=== PATIENT | male | born 1990 | race African-American/Black ===

== ENCOUNTER 2020-03-26 09:54 | Emergency (ER) | payer OTHER ==
[2020-03-26 10:19] VITALS: BP 147/91; PULSE 107; TEMP 99.3; BMI 29.0
[2020-03-26] MEDS ORDERED: ACETAMINOPHEN 500 MG TABLET (FP) PO ONE (10:42)
[2020-03-26] MEDS ORDERED: ACETAMINOPHEN 325 MG TABLET (FP) ONE (10:47)
--- NOTE | 2020-03-26 10:59 | PDOC ---
History of Present Illness - General Chief Complaint: Pain, Acute Stated Complaint: ABD PAIN/WEAKNESS Time Seen by Provider: 03/26/20 10:30 History Source: Patient Exam Limitations: No Limitations - History of Present Illness Initial Comments: 03/26/20 10:54 30-year-old male presents to the ED with myalgia, chills, intermittent shortness of breath, abdominal pain and intermittent diarrhea for the past 3 days. 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 Patient states history of asthma and has been using his inhaler as needed which has improved his shortness of breath. Patient states also is taking baby aspirin for discomfort with no improvement. Patient has no other complaints at this time. Is this a multiple visit Asthma Patient?: No Timing/Duration: other Severity: moderate Associated Symptoms: reports: fever/chills, shortness of breath, weakness (Shortness of breath weakness) Past History - Travel History Traveled outside of the country in the last 30 days: No Close contact w/someone who was outside of country & ill: No - Medical History Allergies/Adverse Reactions: Allergies Allergy/AdvReac Type Severity Reaction Status Date / Time No Known Allergies Allergy Verified 03/26/20 10:17 Home Medications: Ambulatory Orders Albuterol Sulfate Inhaler - [Ventolin HFA Inhaler -] 1 - 2 inh PO QID #1 inhaler 01/02/20 Acetaminophen [Tylenol] 650 mg PO QID PRN 03/26/20 Aspirin [ASA -] 325 mg PO DAILY 03/26/20 Loperamide HCl [Imodium -] 2 mg PO BID #14 capsule 03/26/20 Magnesium 250 mg PO DAILY 03/26/20 Methylprednisolone [Medrol Dose Harish] 4 mg PO ASDIR #21 tablet 03/26/20 Multivitamin [Multiple Vitamins] 1 each PO DAILY 03/26/20 Potassium Gluconate [Potassium] 1 tab PO DAILY 03/26/20 Asthma: Yes COPD: No GI Disorders: No Kidney Stones: No - Surgical History Cholecystectomy: No - Immunization History Immunization Up to Date: No - Psycho-Social/Smoking History Patient Lives Alone: No Lives with/in: spouse/SO Smoking History: Never smoked Have you smoked in the past 12 months: No - Substance Abuse Hx (Audit-C & DAST Scrn) How often the patient has a drink containing alcohol: Never Score: In Men: 4 or > Positive; In Women: 3 or > Positive: 0 Screen Result (Pos requires Nsg. Audit-10AR): Negative In the last yr the pt used illegal drug/Rx for NonMed reason: No Score: Yes response is considered Positive: 0 Screen Result (Positive result requires Nsg. DAST-10): Negative Review of Systems - Review of Systems Able to Perform ROS?: Yes Is the patient limited [place] proficient: Yes Constitutional: Yes: Chills, Weakness HEENTM: No: Symptoms Reported Respiratory: Yes: SOB with Exertion Cardiac (ROS): No: Symptoms Reported ABD/GI: Yes: Diarrhea, Abdominal cramping : No: Symptoms Reported Musculoskeletal: Yes: Joint Pain, Muscle Pain Integumentary: No: Symptoms Reported Neurological: No: Headache, Dizziness Hematologic/Lymphatic: No: Symptoms Reported *Physical Exam - Vital Signs Last Vital Signs Temp Pulse Resp BP Pulse Ox 99.3 F 107 H 18 147/91 100 03/26/20 10:16 03/26/20 10:16 03/26/20 10:16 03/26/20 10:16 03/26/20 10:16 - Physical Exam General Appearance: Yes: Nourished, Appropriately Dressed. No: Apparent Distress HEENT: negative: Pale Conjunctivae Neck: positive: Supple Respiratory/Chest: positive: Lungs Clear, Normal Breath Sounds. negative: Respiratory Distress, Accessory Muscle Use Cardiovascular: positive: Regular Rhythm, Tachycardia. negative: Murmur Gastrointestinal/Abdominal: positive: Soft. negative: Tenderness Integumentary: positive: Normal Color, Warm, Moist Neurologic: positive: Motor Strength 5/5 (Ambulatory) ED Treatment Course - Medications Given in the ED: ED Medications Discontinued Medications Generic Name Dose Route Start Last Admin Trade Name Freq PRN Reason Stop Dose Admin Acetaminophen 975 mg 03/26/20 10:42 03/26/20 10:50 Tylenol - PO 03/26/20 10:43 975 mg ONCE ONE Administration Medical Decision Making - Medical Decision Making 03/26/20 10:58 Chief complaint: Chills no abdominal pain, diarrhea, myalgia shortness of breath on exertion, and mild weakness for the past 3 days. Patient using his albuterol inhaler with good effect. Exam: Patient tachycardic at rest with an O2 sat of 100%. Patient ambulated up and down the ER ramp and returned with an O2 sat of 100% with a heart rate of 122. Patient with low-grade temp. Lungs clear to auscultation. Abdomen nontender. Plan: COVID swab, Tylenol and discharged home with Imodium and Medrol pack patient has a new inhaler at home. Work note initiated patient recommended to stay home. Discharge - Discharge Information Problems reviewed: Yes Clinical Impression/Diagnosis: Encounter for laboratory testing for COVID-19 virus, Abdominal pain Condition: Good Disposition: HOME - Additional Discharge Information Prescriptions: Loperamide HCl [Imodium -] 2 mg PO BID #14 capsule - Follow up/Referral - Patient Discharge Instructions Patient Printed Discharge Instructions: [facility]-Coronavirus Instructions, DI for Shortness of Breath, DI for Diarrhea and Traveler's Diarrhea -- Adult Additional Instructions: Take Medrol pack which will improve your breathing and use your albuterol inhaler as needed. Use Imodium for diarrhea. Drink plenty of fluids take Tylenol every 6-8 hours for discomfort and fever control. You will be notified of your COVID test within 24 to 36 hours - Post Discharge Activity Work/Back to School Note: Back to Work
== END 2020-03-26 11:34 | disposition home or self-care (01) ==
LOC: JER 09:54
DX: R10.9 Unspecified abdominal pain (principal); Z11.59 Encounter for screening for other viral diseases
CPT/HCPCS: 99284-25; U0003